=== PATIENT | male | born 1950 | race Caucasian/White ===

== ENCOUNTER 2018-04-12 11:52 | Emergency (ER) | payer MEDICARE, BC ==
[~2018-04-12] VITALS: Ht 182.9 cm; Wt 103.4 kg
[2018-04-12] MEDS ORDERED: KETOROLAC TROMETHAMINE 60 MG/2 ML VIAL IM ONE (12:15)
[2018-04-12] MEDS ORDERED: ROBAXIN-750750 MG PO (12:42)
[2018-04-12] MEDS ORDERED: PEPCID20 MG PO (12:42)
[2018-04-12] MEDS ORDERED: MELOXICAM7.5 MG PO (12:42)
[2018-04-12 13:03] VITALS: BP 149/81
== END 2018-04-12 12:50 | disposition home or self-care (01) ==
LOC: ER 11:52 → FSED 12:50
DX: S20.219A Contusion of unspecified front wall of thorax, initial encounter (principal); S16.1XXA Strain of muscle, fascia and tendon at neck level, initial encounter; S00.01XA Abrasion of scalp, initial encounter; S50.312A Abrasion of left elbow, initial encounter; S90.512A Abrasion, left ankle, initial encounter; V53.5XXA Driver of pick-up truck or van injured in collision with car, pick-up truck or van in traffic accident, initial encounter; Y92.488 Other paved roadways as the place of occurrence of the external cause; I10 Essential (primary) hypertension; K21.9 Gastro-esophageal reflux disease without esophagitis
CPT/HCPCS: 96372; 99282; J1885

== ENCOUNTER 2018-04-20 19:10 | Emergency (ER) | payer MEDICARE, BC, OTHER ==
[~2018-04-20] VITALS: Ht 182.9 cm; Wt 102.1 kg
[~2018-04-20 19:10] MED LIST: MELOXICAM7.5 MG PO; PEPCID20 MG PO; ROBAXIN-750750 MG PO
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
[2018-04-20] MEDS ORDERED: KETOROLAC TROMETHAMINE 30 MG/ML VIAL IV STA (20:29)
[2018-04-20 22:04] VITALS: BP 134/70
== END 2018-04-20 21:50 | disposition home or self-care (01) ==
LOC: FSED 19:10
DX: R07.89 Other chest pain (principal); I10 Essential (primary) hypertension; G43.909 Migraine, unspecified, not intractable, without status migrainosus; V49.40XA Driver injured in collision with unspecified motor vehicles in traffic accident, initial encounter; Y93.9 Activity, unspecified; Y92.9 Unspecified place or not applicable
CPT/HCPCS: 93005; 99284